=== PATIENT | female | born 1960 | race African-American/Black ===

== ENCOUNTER 2016-04-30 15:14 | Inpatient (IN) | payer MEDICAID, OTHER ==
[~2016-04-30] VITALS: Ht 167.6 cm; Wt 80.7 kg
[~2016-04-30 15:14] MED LIST: ALBUTEROL SULF8.5 GM INH; AZITHROMYCIN250 MG ORAL; AZITHROMYCIN500 MG ORAL; CIPROFLOXACIN500 M2 ORAL; CRANBERRY200 M1 PO; CRESTOR10 M1 PO; CYCLOBENZAPRINE10 MG ORAL; DEPAKOTE ER500 MG PO; ECONAZOLE NITRA15 GM; FISH OIL 1,0001 EAC1 ORAL; FLUOCINONIDE-E15 G1 TP; FLUOROMETHOLONE5 ML OP; IBUPROFEN200 MG ORAL; IBUPROFEN600 MG ORAL; LORAZEPAM1 MG ORAL; MACROBID100 MG ORAL; NORCO 5-325 TA1 EACH ORAL; PSEUDOEPHEDRINE30 MG PO; TRAMADOL HCL50 MG ORAL; TRAZODONE HCL100 MG PO; VALACYCLOVIR500 MG PO; ZOFRAN ODT4 MG ORAL
[2016-04-30] MEDS ORDERED: Nitroglycerin 2% oint pkt TOPIC ONE (15:30)
[2016-04-30] MEDS ORDERED: fentaNYL 100 mcg/2 mL IV ONE ×3 (15:30→20:00)
[2016-04-30] MEDS ORDERED: Albuterol ud Inhalation HHN ONE (15:30)
[2016-04-30 15:54] LABS: INR 1.1 (0.9-1.1); PROTHROMBIN TIME 10.7 SEC (9.30-11.50)
[2016-04-30 15:56] LABS: BASOPHILS % (AUTO) 1.6 % (0.0-2.0); EOSINOPHILS % (AUTO) 3.3 % (0.0-3.0); LYMPHOCYTES % (AUTO) 45.6 % (20.0-45.0); MEAN CORPUSCULAR HEMOGLOBIN 25.7 PG (27.0-31.0); MEAN CORPUSCULAR HGB CONC 31.3 G/DL (32.0-36.0); MEAN CORPUSCULAR VOLUME 82 FL (80-99); MEAN PLATELET VOLUME 6.9 FL (6.5-10.1); NEUTROPHILS % (AUTO) 42.6 % (45.0-75.0); PLATELET COUNT 246 K/UL (150-450); RED BLOOD COUNT 4.51 M/UL (4.20-5.40); RED CELL DISTRIBUTION WIDTH 14.5 % (11.6-14.8); WHITE BLOOD COUNT 6.5 K/UL (4.8-10.8)
[2016-04-30 16:00] LABS: ALANINE AMINOTRANSFERASE 24 U/L (3-33); ALBUMIN/GLOBULIN RATIO 1.8 (1.0-2.7); ANION GAP 16 (5-15); ASPARTATE AMINO TRANSFERASE 19 U/L (5-40); CALCIUM 9.2 mg/dL (8.6-10.2); CARBON DIOXIDE 26 mEQ/L (20-30); CHLORIDE 99 mEQ/L (98-107); GLOMERULAR FILTRATION RATE > 60 mL/min (>60); HEMOLYSIS 4; POTASSIUM 3.6 mEQ/L (3.4-4.9); SODIUM 141 mEQ/L (135-145); TROPONIN I < 0.30 ng/mL (<=0.30)
--- NOTE | 2016-04-30 16:01 | Emergency Room Report ---
History of Present Illness General Chief Complaint: Chest Pain Source: Patient, Medical Record Present Illness HPI Patient presents with chest pain that began last night. She reports it as pressure. It was intermittent last night but worse today. She denies any fevers or cough. Somewhat positional. She denies it radiating. She states is fairly severe at this time 9/10. Denies any nausea vomiting or diarrhea. In addition she denies diaphoresis. The patient is a prior smoker but denies hypertension and diabetes. The patient never had a cardiac workup operative she's never been admitted for chest pain however she's had several visits for this complaint in the past. She denies any vomiting, hematemesis, melena or change in her bowels. She denies dysuria. Also no extremity pain. Allergies: Coded Allergies: SHELLFISH DERIVED (Verified Allergy, Severe, Anaphylaxis, 04/30/12) MORPHINE (Verified Allergy, Intermediate, HEADAHCE, 08/06/13) Patient History Past Medical History: see triage record Social History: Reports: smoking - prior Social History Narrative At home Last Menstrual Period: 08/28/2009 Now: No : 6 Reviewed Nursing Documentation: PMH: Agreed, PSxH: Agreed Nursing Documentation-PMH Hx Diabetes: Yes - PRE-DIABETIC Hx Cancer: No Review of Systems All Other Systems: negative except mentioned in HPI Physical Exam Vital Signs Date Time Temp Pulse Resp B/P Pulse Ox O2 Delivery O2 Flow Rate FiO2 04/30/16 15:21 97.9 85 14 137/68 98 Room Air Sp02 EP Interpretation: reviewed, normal General Appearance: well appearing, no apparent distress, GCS 15 Head: normocephalic Eyes: bilateral eye PERRL, bilateral eye normal inspection ENT: moist mucus membranes Neck: supple Respiratory: chest non-tender, lungs clear, normal breath sounds Cardiovascular #1: regular rate, rhythm Cardiovascular #2: 2+ radial (R) Gastrointestinal: normal inspection, normal bowel sounds, non tender, no mass, non-distended Musculoskeletal: back normal, gait/station normal, normal range of motion Neurologic: alert, oriented x3, motor strength/tone normal, sensory intact Psychiatric: mood/affect normal Skin: normal inspection, warm/dry Medical Decision Making Diagnostic Impression: Primary Impression: Chest pain Additional Impression: Possible WPW ER Course The patient presents with chest pressure since last night. Differential includes costochondritis, acute myocardial infarction, acute coronary syndrome, GERD, gastritis, viral syndrome. She's requesting a breathing treatment. Her lungs are clear. Emergent evaluation is undertaken to exclude acute myocardial infarction. In addition the patient will be given aspirin Nitrol paste and also small dose of fentanyl to help with pain. Evaluation with labs, EKG chest x-ray are undertaken. EKG reveals normal sinus rhythm with a possibility of of Bulja-Eazvpydxj-Lwtio syndrome with a delta wave. There are no other acute changes. Patient still with pressure. Fentanyl repeated. Initial labs negative. Improved. C/O ALVAREZ with nitrates. Needs cardiac evaluation. Patient presented to Dr. Sullivan at [facility] who accepts the patient. Due to time delay for transfer, admit tele Dr. Zamora. Laboratory Tests Test 04/30/16 15:35 04/30/16 16:08 White Blood Count 6.5 K/UL (4.8-10.8) Red Blood Count 4.51 M/UL (4.20-5.40) Hemoglobin 11.6 G/DL (12.0-16.0) L Hematocrit 37.1 % (37.0-47.0) Mean Corpuscular Volume 82 FL (80-99) Mean Corpuscular Hemoglobin 25.7 PG (27.0-31.0) L Mean Corpuscular Hemoglobin Concent 31.3 G/DL (32.0-36.0) L Red Cell Distribution Width 14.5 % (11.6-14.8) Platelet Count 246 K/UL (150-450) Mean Platelet Volume 6.9 FL (6.5-10.1) Neutrophils (%) (Auto) 42.6 % (45.0-75.0) L Lymphocytes (%) (Auto) 45.6 % (20.0-45.0) H Monocytes (%) (Auto) 7.0 % (1.0-10.0) Eosinophils (%) (Auto) 3.3 % (0.0-3.0) H Basophils (%) (Auto) 1.6 % (0.0-2.0) Prothrombin Time 10.7 SEC (9.30-11.50) Prothrombin Time INR 1.1 (0.9-1.1) PTT 28 SEC (23-33) Sodium Level 141 mEQ/L (135-145) Potassium Level 3.6 mEQ/L (3.4-4.9) Chloride Level 99 mEQ/L (98-107) Carbon Dioxide Level 26 mEQ/L (20-30) Anion Gap 16 (5-15) H Blood Urea Nitrogen 13 mg/dL (7-23) Creatinine 1.0 mg/dL (0.5-0.9) H Estimate Glomerular Filtration Rate > 60 mL/min (>60) Glucose Level 99 mg/dL (74-106) Calcium Level 9.2 mg/dL (8.6-10.2) Total Bilirubin 0.2 mg/dL (0.0-1.2) Aspartate Amino Transferase (AST) 19 U/L (5-40) Alanine Aminotransferase (ALT) 24 U/L (3-33) Alkaline Phosphatase 89 U/L (35-104) Total Creatine Kinase 269 U/L (26-140) H Troponin I < 0.30 ng/mL (<=0.30) Pro-B-Type Natriuretic Peptide 48 pg/mL (0-125) Total Protein 7.0 g/dL (6.6-8.7) Albumin 4.5 g/dL (3.5-5.2) Globulin 2.5 g/dL Albumin/Globulin Ratio 1.8 (1.0-2.7) Urine Color Pale yellow Urine Appearance Clear Urine pH 6 (4.5-8.0) Urine Specific [place] 1.015 (1.005-1.035) Urine Protein Negative (NEGATIVE) Urine Glucose (UA) Negative (NEGATIVE) Urine Ketones Negative (NEGATIVE) Urine Occult Blood 2+ (NEGATIVE) H Urine Nitrite Negative (NEGATIVE) Urine Bilirubin Negative (NEGATIVE) Urine Urobilinogen Normal MG/DL (0.0-1.0) Urine Leukocyte Esterase 2+ (NEGATIVE) H Urine RBC 2-4 /HPF (0 - 2) H Urine WBC 0-2 /HPF (0 - 2) Urine Squamous Epithelial Cells Few /LPF (NONE/OCC) Urine Bacteria Few /HPF (NONE) Urine Opiates Screen Negative (NEGATIVE) Urine Barbiturates Screen Negative (NEGATIVE) Phencyclidine (PCP) Screen Negative (NEGATIVE) Urine Amphetamines Screen Negative (NEGATIVE) Urine Benzodiazepines Screen Negative (NEGATIVE) Urine Cocaine Screen Negative (NEGATIVE) Urine Marijuana (THC) Screen Negative (NEGATIVE) EKG Diagnostic Results Rate: normal Rhythm: NSR ST Segments: no acute changes Rhythm Strip Diag. Results Rhythm: NSR, no PVC's, no ectopy Chest X-Ray Diagnostic Results EP Interpretation: Yes Findings: no consolidation, no effusion, no pneumothorax, other - bone cyst R shoulder Number of Views: 1 Last Vital Signs Date Time Temp Pulse Resp B/P Pulse Ox O2 Delivery O2 Flow Rate FiO2 05/01/16 03:58 84 05/01/16 00:00 97.3 18 120/63 92 Room Air Status: improved Disposition: ADMITTED INPATIENT Condition: Serious - ERASED Calvin Fulton M.D. Apr 30, 2016 16:01
[2016-04-30 16:13] VITALS: BP 129/61
[2016-04-30 16:27] LABS: APPEARANCE,URINE CLEAR; KETONES,URINE NEGATIVE (NEGATIVE); LEUKOCYTE ESTERASE ,URINE 2+ (NEGATIVE); NITRITE,URINE NEGATIVE (NEGATIVE); PH,URINE 6 (4.5-8.0); PROTEIN,URINE NEGATIVE (NEGATIVE); UROBILINOGEN,URINE NORMAL MG/DL (0.0-1.0)
[2016-04-30 16:49] LABS: BACTERIA,URINE FEW /HPF; SQUAMOUS EPITHELIAL CELL,UR FEW /LPF (NONE/OCC); WBC,URINE 0-2 /HPF (0 - 2)
[2016-04-30 18:01] VITALS: BP 133/64
[2016-04-30 21:12] VITALS: BP 142/66
[2016-04-30] MEDS ORDERED: Diltiazem 25mg/5ml IV PRN (22:00)
[2016-04-30] MEDS ORDERED: DuoNeb 0.5-3(2.5)mg/3ml neb HHN PRN (22:00)
[2016-04-30] MEDS ORDERED: Miralax 17gm pkt ORAL PRN (22:00)
[2016-04-30] MEDS ORDERED: Ketorolac 30mg Inj IV PRN (22:00)
[2016-04-30] MEDS ORDERED: Nitroglycerin Subl 0.4mg tab (Bottle Of 25) SL PRN (22:00)
[2016-04-30] MEDS ORDERED: Enalaprilat 2.5mg/2ml Inj IV PRN (22:00)
[2016-05-01] VITALS: BP 120/63
[2016-05-01 07:24] LABS: BASOPHILS % (AUTO) 1.1 % (0.0-2.0); LYMPHOCYTES % (AUTO) 47.1 % (20.0-45.0); MEAN CORPUSCULAR HEMOGLOBIN 26.3 PG (27.0-31.0); MEAN CORPUSCULAR HGB CONC 32.1 G/DL (32.0-36.0); MEAN CORPUSCULAR VOLUME 82 FL (80-99); MEAN PLATELET VOLUME 7.2 FL (6.5-10.1); MONOCYTES % (AUTO) 7.6 % (1.0-10.0); NEUTROPHILS % (AUTO) 41.2 % (45.0-75.0); PLATELET COUNT 233 K/UL (150-450); RED BLOOD COUNT 4.35 M/UL (4.20-5.40); RED CELL DISTRIBUTION WIDTH 14.7 % (11.6-14.8); WHITE BLOOD COUNT 6.4 K/UL (4.8-10.8)
[2016-05-01 07:45] LABS: INR 1.1 (0.9-1.1); PROTHROMBIN TIME 10.7 SEC (9.30-11.50)
[2016-05-01 08:06] LABS: TROPONIN I < 0.30 ng/mL (<=0.30)
[2016-05-01 08:07] LABS: CHOLESTEROL/HDL RATIO 5.1 (3.3-4.4); CRP QUANT 0.9 mg/dL (< 0.5)
[2016-05-01 08:11] LABS: THYROID STIMULATING HORMONE 2.21 uIU/mL (0.300-4.500)
--- NOTE | 2016-05-01 08:23 | Cardiology Progress Note ---
Assessment/Plan Assessment/Plan cp gerd hs in ic aneurysm coiled at [facility] hyperlipidemia chest wall now tender trop ar eneg despite all day pain yest ekg neg agree ewith echo possible gii vs costochondiritis as a cause of pain vs esopahgeal pain [id number] Objective Last 24 Hour Vital Signs Date Time Temp Pulse Resp B/P Pulse Ox O2 Delivery O2 Flow Rate FiO2 05/01/16 03:58 84 05/01/16 00:00 97.3 73 18 120/63 92 Room Air 04/30/16 23:47 87 04/30/16 21:30 98.1 88 19 142/66 99 Room Air 04/30/16 21:12 98.1 88 19 142/66 99 Room Air 04/30/16 21:12 98.1 04/30/16 18:01 97.9 93 20 133/64 98 Room Air 04/30/16 17:03 97.9 04/30/16 16:14 75 19 Room Air 04/30/16 16:13 97.8 93 24 129/61 97 Room Air 04/30/16 16:07 97.8 04/30/16 15:51 75 19 100 Room Air 04/30/16 15:40 81 22 100 Room Air 04/30/16 15:39 81 22 Room Air 04/30/16 15:36 135/76 04/30/16 15:21 97.9 85 14 137/68 98 Room Air Laboratory Tests Test 04/30/16 15:35 04/30/16 16:08 05/01/16 06:30 White Blood Count 6.5 K/UL (4.8-10.8) 6.4 K/UL (4.8-10.8) Red Blood Count 4.51 M/UL (4.20-5.40) 4.35 M/UL (4.20-5.40) Hemoglobin 11.6 G/DL (12.0-16.0) L 11.4 G/DL (12.0-16.0) L Hematocrit 37.1 % (37.0-47.0) 35.6 % (37.0-47.0) L Mean Corpuscular Volume 82 FL (80-99) 82 FL (80-99) Mean Corpuscular Hemoglobin 25.7 PG (27.0-31.0) L 26.3 PG (27.0-31.0) L Mean Corpuscular Hemoglobin Concent 31.3 G/DL (32.0-36.0) L 32.1 G/DL (32.0-36.0) Red Cell Distribution Width 14.5 % (11.6-14.8) 14.7 % (11.6-14.8) Platelet Count 246 K/UL (150-450) 233 K/UL (150-450) Mean Platelet Volume 6.9 FL (6.5-10.1) 7.2 FL (6.5-10.1) Neutrophils (%) (Auto) 42.6 % (45.0-75.0) L 41.2 % (45.0-75.0) L Lymphocytes (%) (Auto) 45.6 % (20.0-45.0) H 47.1 % (20.0-45.0) H Monocytes (%) (Auto) 7.0 % (1.0-10.0) 7.6 % (1.0-10.0) Eosinophils (%) (Auto) 3.3 % (0.0-3.0) H 3.0 % (0.0-3.0) Basophils (%) (Auto) 1.6 % (0.0-2.0) 1.1 % (0.0-2.0) Prothrombin Time 10.7 SEC (9.30-11.50) 10.7 SEC (9.30-11.50) Prothromb Time International Ratio 1.1 (0.9-1.1) 1.1 (0.9-1.1) Activated Partial Thromboplast Time 28 SEC (23-33) 28 SEC (23-33) Sodium Level 141 mEQ/L (135-145) Potassium Level 3.6 mEQ/L (3.4-4.9) Chloride Level 99 mEQ/L (98-107) Carbon Dioxide Level 26 mEQ/L (20-30) Anion Gap 16 (5-15) H Blood Urea Nitrogen 13 mg/dL (7-23) Creatinine 1.0 mg/dL (0.5-0.9) H Estimat Glomerular Filtration Rate > 60 mL/min (>60) Glucose Level 99 mg/dL (74-106) Calcium Level 9.2 mg/dL (8.6-10.2) Total Bilirubin 0.2 mg/dL (0.0-1.2) Aspartate Amino Transf (AST/SGOT) 19 U/L (5-40) Alanine Aminotransferase (ALT/SGPT) 24 U/L (3-33) Alkaline Phosphatase 89 U/L (35-104) Total Creatine Kinase 269 U/L (26-140) H Troponin I < 0.30 ng/mL (<=0.30) < 0.30 ng/mL (<=0.30) Pro-B-Type Natriuretic Peptide 48 pg/mL (0-125) Total Protein 7.0 g/dL (6.6-8.7) Albumin 4.5 g/dL (3.5-5.2) Globulin 2.5 g/dL Albumin/Globulin Ratio 1.8 (1.0-2.7) Urine Color Pale yellow Urine Appearance Clear Urine pH 6 (4.5-8.0) Urine Specific [place] 1.015 (1.005-1.035) Urine Protein Negative (NEGATIVE) Urine Glucose (UA) Negative (NEGATIVE) Urine Ketones Negative (NEGATIVE) Urine Occult Blood 2+ (NEGATIVE) H Urine Nitrite Negative (NEGATIVE) Urine Bilirubin Negative (NEGATIVE) Urine Urobilinogen Normal MG/DL (0.0-1.0) Urine Leukocyte Esterase 2+ (NEGATIVE) H Urine RBC 2-4 /HPF (0 - 2) H Urine WBC 0-2 /HPF (0 - 2) Urine Squamous Epithelial Cells Few /LPF (NONE/OCC) Urine Bacteria Few /HPF (NONE) Urine Opiates Screen Negative (NEGATIVE) Urine Barbiturates Screen Negative (NEGATIVE) Phencyclidine (PCP) Screen Negative (NEGATIVE) Urine Amphetamines Screen Negative (NEGATIVE) Urine Benzodiazepines Screen Negative (NEGATIVE) Urine Cocaine Screen Negative (NEGATIVE) Urine Marijuana (THC) Screen Negative (NEGATIVE) C-Reactive Protein, Quantitative 0.9 mg/dL (< 0.5) H Triglycerides Level 196 mg/dL (< 150) H Cholesterol Level 177 mg/dL (< 200) LDL Cholesterol 103 mg/dL (60-99) H HDL Cholesterol 35 mg/dL (> 60) Cholesterol/HDL Ratio 5.1 (3.3-4.4) H Thyroid Stimulating Hormone (TSH) 2.210 uIU/mL (0.300-4.500) KAT ROSSb 24, 2017 08:23
--- NOTE | 2016-05-01 08:42 | Diagnostic Imaging Report ---
Indication: Chest pain Technique: One view of the chest Comparison: 07/02/2015 Findings: Lungs and pleural spaces are clear. Heart size is normal. No significant change Impression: No acute process
[2016-05-01] MEDS ORDERED: Depakote ER 500mg tab ORAL SCH (09:00)
[2016-05-01] MEDS ORDERED: Aspirin Baby 81mg ORAL SCH (09:00)
[2016-05-01] MEDS: Heparin 5000 units/ml inj SUBQ SCH ×2 (09:00→21:00)
[2016-05-01 12:00] VITALS: BP 118/65
--- NOTE | 2016-05-01 14:55 | History and Physical ---
History of Present Illness General Date patient seen: May 01, 2016 Reason for Hospitalization: Chest Pain Present Illness HPI 55 year old patient with hx Depression, brain aneurysm with coiling at [facility], presented to [place] [facility] with chest pain that began the night before admission . She reports it as pressure. It was intermittent last night but worse today. Somewhat positional. She denies it radiating. She states is fairly severe at this time. Allergies: Coded Allergies: SHELLFISH DERIVED (Verified Allergy, Severe, Anaphylaxis, 04/30/12) MORPHINE (Verified Allergy, Intermediate, HEADAHCE, 08/06/13) Medication History Scheduled Cranberry Extract (Cranberry), 3 TAB PO DAILY, (Reported) Divalproex Sodium* (Depakote Er*), 500 MG PO HS, (Reported) Fluorometholone (Fluorometholone), 5 ML OP PRN, (Reported) [place]-3 Fatty Acids/Fish Oil* (Fish Oil 1,000 Mg Softgel*), 2 CAP ORAL DAILY, ( Reported) Rosuvastatin Calcium (Crestor), 10 MG PO DAILY, (Reported) Trazodone Hcl* (Desyrel*), 150 MG PO QHS, (Reported) Valacyclovir Hcl* (Valtrex*), 1,000 MG PO BID, (Reported) Scheduled PRN Hydrocodone Bit/Acetaminophen 5-325* (Ev[place] 5-325*), 1 TAB ORAL Q6H PRN for For Pain Miscellaneous Medications Econazole Nitrate (Econazole Nitrate), 1 APPLIC, (Reported) Fluocinonide/Emollient (Fluocinonide-E 0.05% Cream), 15 GM TP, (Reported) Ibuprofen (Ibuprofen*), 800 MG ORAL, (Reported) Lorazepam* (Lorazepam*), 1 MG ORAL, (Reported) Patient History Healthcare decision maker pt alert and oriented Resuscitation status Full Code Advanced Directive on File Review of Systems All Other Systems: negative except mentioned in HPI Physical Exam General Appearance: WD/WN Lines, tubes and drains: peripheral, central line HEENT: normocephalic, atraumatic Neck: non-tender, normal alignment Respiratory/Chest: chest wall non-tender, lungs clear Cardiovascular/Chest: normal peripheral pulses, normal rate Abdomen: normal bowel sounds, non tender Last 24 Hour Vital Signs Date Time Temp Pulse Resp B/P Pulse Ox O2 Delivery O2 Flow Rate FiO2 05/01/16 12:00 97.3 82 18 118/65 98 Room Air 05/01/16 08:06 78 18 Room Air 05/01/16 07:51 79 05/01/16 03:58 84 05/01/16 00:00 97.3 73 18 120/63 92 Room Air 04/30/16 23:47 87 04/30/16 21:30 98.1 88 19 142/66 99 Room Air 04/30/16 21:12 98.1 88 19 142/66 99 Room Air 04/30/16 21:12 98.1 04/30/16 18:01 97.9 93 20 133/64 98 Room Air 04/30/16 17:03 97.9 04/30/16 16:14 75 19 Room Air 04/30/16 16:13 97.8 93 24 129/61 97 Room Air 04/30/16 16:07 97.8 04/30/16 15:51 75 19 100 Room Air 04/30/16 15:40 81 22 100 Room Air 04/30/16 15:39 81 22 Room Air 04/30/16 15:36 135/76 04/30/16 15:21 97.9 85 14 137/68 98 Room Air Laboratory Tests Test 04/30/16 15:35 04/30/16 16:08 05/01/16 06:30 White Blood Count 6.5 K/UL (4.8-10.8) 6.4 K/UL (4.8-10.8) Red Blood Count 4.51 M/UL (4.20-5.40) 4.35 M/UL (4.20-5.40) Hemoglobin 11.6 G/DL (12.0-16.0) L 11.4 G/DL (12.0-16.0) L Hematocrit 37.1 % (37.0-47.0) 35.6 % (37.0-47.0) L Mean Corpuscular Volume 82 FL (80-99) 82 FL (80-99) Mean Corpuscular Hemoglobin 25.7 PG (27.0-31.0) L 26.3 PG (27.0-31.0) L Mean Corpuscular Hemoglobin Concent 31.3 G/DL (32.0-36.0) L 32.1 G/DL (32.0-36.0) Red Cell Distribution Width 14.5 % (11.6-14.8) 14.7 % (11.6-14.8) Platelet Count 246 K/UL (150-450) 233 K/UL (150-450) Mean Platelet Volume 6.9 FL (6.5-10.1) 7.2 FL (6.5-10.1) Neutrophils (%) (Auto) 42.6 % (45.0-75.0) L 41.2 % (45.0-75.0) L Lymphocytes (%) (Auto) 45.6 % (20.0-45.0) H 47.1 % (20.0-45.0) H Monocytes (%) (Auto) 7.0 % (1.0-10.0) 7.6 % (1.0-10.0) Eosinophils (%) (Auto) 3.3 % (0.0-3.0) H 3.0 % (0.0-3.0) Basophils (%) (Auto) 1.6 % (0.0-2.0) 1.1 % (0.0-2.0) Prothrombin Time 10.7 SEC (9.30-11.50) 10.7 SEC (9.30-11.50) Prothromb Time International Ratio 1.1 (0.9-1.1) 1.1 (0.9-1.1) Activated Partial Thromboplast Time 28 SEC (23-33) 28 SEC (23-33) Sodium Level 141 mEQ/L (135-145) Potassium Level 3.6 mEQ/L (3.4-4.9) Chloride Level 99 mEQ/L (98-107) Carbon Dioxide Level 26 mEQ/L (20-30) Anion Gap 16 (5-15) H Blood Urea Nitrogen 13 mg/dL (7-23) Creatinine 1.0 mg/dL (0.5-0.9) H Estimat Glomerular Filtration Rate > 60 mL/min (>60) Glucose Level 99 mg/dL (74-106) Calcium Level 9.2 mg/dL (8.6-10.2) Total Bilirubin 0.2 mg/dL (0.0-1.2) Aspartate Amino Transf (AST/SGOT) 19 U/L (5-40) Alanine Aminotransferase (ALT/SGPT) 24 U/L (3-33) Alkaline Phosphatase 89 U/L (35-104) Total Creatine Kinase 269 U/L (26-140) H Troponin I < 0.30 ng/mL (<=0.30) < 0.30 ng/mL (<=0.30) Pro-B-Type Natriuretic Peptide 48 pg/mL (0-125) Total Protein 7.0 g/dL (6.6-8.7) Albumin 4.5 g/dL (3.5-5.2) Globulin 2.5 g/dL Albumin/Globulin Ratio 1.8 (1.0-2.7) Urine Color Pale yellow Urine Appearance Clear Urine pH 6 (4.5-8.0) Urine Specific [place] 1.015 (1.005-1.035) Urine Protein Negative (NEGATIVE) Urine Glucose (UA) Negative (NEGATIVE) Urine Ketones Negative (NEGATIVE) Urine Occult Blood 2+ (NEGATIVE) H Urine Nitrite Negative (NEGATIVE) Urine Bilirubin Negative (NEGATIVE) Urine Urobilinogen Normal MG/DL (0.0-1.0) Urine Leukocyte Esterase 2+ (NEGATIVE) H Urine RBC 2-4 /HPF (0 - 2) H Urine WBC 0-2 /HPF (0 - 2) Urine Squamous Epithelial Cells Few /LPF (NONE/OCC) Urine Bacteria Few /HPF (NONE) Urine Opiates Screen Negative (NEGATIVE) Urine Barbiturates Screen Negative (NEGATIVE) Phencyclidine (PCP) Screen Negative (NEGATIVE) Urine Amphetamines Screen Negative (NEGATIVE) Urine Benzodiazepines Screen Negative (NEGATIVE) Urine Cocaine Screen Negative (NEGATIVE) Urine Marijuana (THC) Screen Negative (NEGATIVE) C-Reactive Protein, Quantitative 0.9 mg/dL (< 0.5) H Triglycerides Level 196 mg/dL (< 150) H Cholesterol Level 177 mg/dL (< 200) LDL Cholesterol 103 mg/dL (60-99) H HDL Cholesterol 35 mg/dL (> 60) Cholesterol/HDL Ratio 5.1 (3.3-4.4) H Thyroid Stimulating Hormone (TSH) 2.210 uIU/mL (0.300-4.500) Height (Feet): 5 Height (Inches): 6.00 Weight (Pounds): 178 Medications Current Medications Medications (Trade) Dose Ordered Sig/Mayra Route PRN Reason Start Time Stop Time Status Last Admin Dose Admin Acetaminophen (Tylenol) 650 mg Q4H PRN ORAL FEVER 04/30/16 22:00 05/30/16 21:59 05/01/16 01:52 Albuterol/ Ipratropium (DuoNeb 0.5-3(2.5)mg/3ml) 3 ml Q4H PRN HHN Shortness of Breath 04/30/16 22:00 05/05/16 21:59 Aspirin (ASA) 162 mg DAILY ORAL 05/01/16 09:00 05/31/16 08:59 05/01/16 09:24 Diltiazem HCl (Cardizem) 10 mg EVERY HOUR PRN IV heart rate more than 120, 04/30/16 22:00 05/30/16 21:59 Divalproex Sodium (Depakote ER) 500 mg DAILY ORAL 05/01/16 09:00 05/31/16 08:59 05/01/16 09:24 Enalaprilat (Vasotec) 2.5 mg Q6H PRN IV sbp more than 160 04/30/16 22:00 05/30/16 21:59 Heparin Sodium (Porcine) (Heparin 5000 units/ml) 5,000 units EVERY 12 HOURS SUBQ 05/01/16 09:00 05/31/16 08:59 Ketorolac Tromethamine (Toradol 30mg) 30 mg Q6H PRN IV moderate pain ( 4-6) 04/30/16 22:00 05/05/16 21:59 Nitroglycerin (Ntg) 0.4 mg Every 5 Minutes PRN SL Prn Chest Pain 04/30/16 22:00 05/30/16 21:59 Ondansetron HCl (Zofran) 4 mg Q6H PRN IVP Nausea & Vomiting 04/30/16 22:00 05/30/16 21:59 Pantoprazole (Protonix) 40 mg DAILY ORAL 05/01/16 09:00 05/31/16 08:59 05/01/16 09:24 Polyethylene Glycol (Miralax) 17 gm DAILYPRN PRN ORAL Constipation 04/30/16 22:00 05/30/16 21:59 Temazepam (Restoril) 15 mg HSPRN PRN ORAL Insomnia 04/30/16 22:00 05/07/16 21:59 Trazodone HCl (Desyrel) 150 mg QHS ORAL 05/01/16 21:00 05/31/16 20:59 Assessment/Plan Problem List: (1) Chest pain ICD Codes: R07.9 - Chest pain, unspecified SNOMED: 96220193 (2) Costochondritis ICD Codes: M94.0 - Chondrocostal junction syndrome [Tietze] SNOMED: 24328352 (3) GERD (gastroesophageal reflux disease) ICD Codes: K21.9 - Gastro-esophageal reflux disease without esophagitis SNOMED: 070139612 Assessment/Plan cardio evaluation serial ekg, troponin GI evaluation. JASMYN MARTINES May 01, 2016 14:55
--- NOTE | 2016-05-01 15:58 | Consultation ---
DATE OF CONSULTATION: 05/01/2016 CARDIAC CONSULTATION CONSULTING PHYSICIAN: Micah Beach M.D. REFERRING PHYSICIAN: Lili Zamora M.D. REASON FOR REFERRAL: Chest pain. HISTORY OF PRESENT ILLNESS: This is a 55-year-old -[place] female, who has a history of hypercholesterolemia, who presented to the hospital because of pain in the center of the chest, heaviness, and pressure the way she described. This pain started day before her presentation to the emergency room, it initially was intermittent, subsequently became persistent, and she came to the emergency room. She really has not noticed any relieving or exacerbating factors, although she does notice that when she swallowed some water yesterday, it did not go down smoothly that she could feel something, but she really does not have pain and she does not have any food getting stuck in her chest. There is no PND or orthopnea. No dyspnea on exertion. No palpitations. No dizziness or lightheadedness. PAST MEDICAL HISTORY: Positive for history of an intracranial aneurysm that was coiled at [facility]. She has hypercholesterolemia, and she has Plasencia's neuroma. She had a history of tubal in the 80s. Denies any diabetes, high blood pressure, heart attack, cancer, stroke, hepatitis, tuberculosis, asthma, or emphysema. No ulcers. She does have a history of reflux. No kidney, liver, thyroid problems, anemia, arthritis, or blood clots. ALLERGIES: She is not allergic to any medication, although she indicated morphine to one of the staff. she told me penicillin, she does not like because of the smell and makes her nauseated. SOCIAL HISTORY: She quit smoking number of years ago. Does not drink alcoholic beverages. REVIEW OF SYSTEMS: Gastrointestinal: No nausea, vomiting, diarrhea, or constipation. Genitourinary: Negative. Pulmonary: Negative. Constitutional: Negative. Neurological: She has numbness and tingling, especially in two toes because of the neuroma. PHYSICAL EXAMINATION: GENERAL: An obese female, in no apparent respiratory distress. NECK: Supple. No jugular venous distention. No abdominojugular reflux noted. LUNGS: Clear to auscultation and percussion. CARDIAC: S1 is normal. S2 is normal. Regular rate and rhythm. No heaves, thrills, or gallops noted. Chest wall appears to be tender to palpation. EXTREMITIES: There is no clubbing, cyanosis, nor is there any edema. ABDOMEN: Soft and nontender. Positive bowel sounds. VITAL SIGNS: Her blood pressure today showed 120/63 to 142/66, respirations in the 70s, and temperature 97.3. LABORATORY AND DIAGNOSTIC DATA: White count of 6.4, hemoglobin 0.4 and platelet count of 233,000. Sodium is 141, potassium 3.6, chloride 99, bicarbonate 26, BUN 13, creatinine 1.0, and glucose of 99. Liver function tests are normal. Two sets of cardiac enzymes are less than 0.3, CPK of 269, pro-natriuretic peptide is only 48. Total cholesterol 177 with an LDL of 103 and HDL of 35. Her electrocardiogram shows normal sinus rhythm, normal QRS axis, really no ST or T-wave of abnormalities on the EKG. A chest x-ray was performed, unfortunately not available for review, but the emergency room physician's note indicates no consolidation, no effusion, no pneumothorax. A bone cyst apparently in the right shoulder was noted. ASSESSMENT: 1. Chest pain possibly include chest wall and/or esophageal, however, cardiac causes also low likelihood. 2. Obesity. 3. History of intracranial aneurysm, status post coiling. 4. Hyperlipidemia. RECOMMENDATION: Dr. Zamora, this patient was seen in cardiac consultation. The patient has had chest pain intermittently the day before admission and all day yesterday and only a soreness at this time. Her EKG at least one set is unremarkable. She has had two sets of cardiac enzymes that were many hours apart and those are negative indicating that this has not been associated with myocardial infarction. She does have some tenderness on palpation of the chest wall, which may indicate this pain is actually in her costochondral area. She did have some worsening of the pain to this degree when she drank some water, indicating the possibility of a GI origin as well. Cardiac evaluation is in progress, an echocardiogram has been ordered, and the patient apparently belongs to an HMO, may be transferred to a different facility for further evaluation. Micah Beach M.D. DR: SIVAKUMAR JOB#: [id number] CC:
[2016-05-01 16:00] VITALS: BP 138/97
--- NOTE | 2016-05-01 16:04 | GI Initial Consult Note ---
History of Present Illness General Date patient seen: May 01, 2016 Time patient seen: 15:56 Reason for Hospitalization: Chest Pain Referring physician: EDEN Reason for Consultation: EPIGASTRIC PAIN / GERD Present Illness HPI Patient presents with chest pain that began last night. She reports it as pressure. It was intermittent last night but worse today. She denies any fevers or cough. Somewhat positional. She denies it radiating. She states is fairly severe at this time. Denies any nausea vomiting or diarrhea. In addition she denies diaphoresis. The patient is a prior smoker but denies hypertension and diabetes. GI CONSULT: HPI as noted above. GI consulted for epigastric pain 2/2 GERD. Pt originally admitted for CP s/p negative cardiac work up c/o of sharp epigastric pain with tenderness since last night. States this is her first episode. Denies smoking, drug use. Social drinker. Pt states she had a EGD/ colonoscopy last year with hx of colonic polyps. She is unable to recall the results or location of the endoscopic clinic. Home Meds Active Scripts Hydrocodone Bit/Acetaminophen 5-325* (NORCO 5-325*) 1 Each Tablet, 1 TAB ORAL Q6H Y for For Pain, #20 TAB Prov:ENRIQUE CHAVEZ M.D. 11/01/15 Reported Medications Fluorometholone (FLUOROMETHOLONE) 5 Ml Drops.susp, 5 ML OP PRN 04/13/14 Econazole Nitrate (Econazole Nitrate) 15 Gm Cr, 1 APPLIC, #15 GM 0 Refills 04/13/14 Fluocinonide/Emollient (FLUOCINONIDE-E 0.05% CREAM) 15 Gm Cream..g., 15 GM TP, GM 04/13/14 Ibuprofen (IBUPROFEN*) 200 Mg Tablet, 800 MG ORAL, #30 TAB 0 Refills 04/13/14 Lorazepam* (LORAZEPAM*) 1 Mg Tablet, 1 MG ORAL, TAB 04/13/14 Cranberry Extract (CRANBERRY) 200 Mg Capsule, 3 TAB PO DAILY 12/20/12 Parker-3 Fatty Acids/Fish Oil* (FISH OIL 1,000 MG SOFTGEL*) 1 Each Capsule, 2 CAP ORAL DAILY, #30 CAP 0 Refills 12/20/12 Trazodone Hcl* (DESYREL*) 100 Mg Tablet, 150 MG PO QHS 04/29/12 Divalproex Sodium* (DEPAKOTE ER*) 500 Mg Tab.er.24h, 500 MG PO HS, #10 TAB 04/29/12 Rosuvastatin Calcium (Crestor) 10 Mg Tab, 10 MG PO DAILY 04/29/12 Valacyclovir Hcl* (VALTREX*) 500 Mg Tablet, 1000 MG PO BID 04/29/12 Med list reviewed/reconciled: Yes Allergies: Coded Allergies: SHELLFISH DERIVED (Verified Allergy, Severe, Anaphylaxis, 04/30/12) MORPHINE (Verified Allergy, Intermediate, HEADAHCE, 08/06/13) Patient History History Provided By: Patient, Medical Record [facility] Narrative Past Medical History: see triage record Social History: Reports: smoking - prior Social History Narrative At home Last Menstrual Period: 08/28/2009 Now: No : 6 Nursing Documentation-[facility] Hx Diabetes: Yes - PRE-DIABETIC Hx Cancer: No Social History: Reports: alcohol use - social Review of Systems All Other Systems: negative except mentioned in HPI Physical Exam Vital Signs Date Time Temp Pulse Resp B/P Pulse Ox O2 Delivery O2 Flow Rate FiO2 04/30/16 15:21 97.9 85 14 137/68 98 Room Air Sp02 EP Interpretation: reviewed Labs Laboratory Tests Test 04/30/16 16:08 05/01/16 06:30 Urine Color Pale yellow Urine Appearance Clear Urine pH 6 (4.5-8.0) Urine Specific [place] 1.015 (1.005-1.035) Urine Protein Negative (NEGATIVE) Urine Glucose (UA) Negative (NEGATIVE) Urine Ketones Negative (NEGATIVE) Urine Occult Blood 2+ (NEGATIVE) H Urine Nitrite Negative (NEGATIVE) Urine Bilirubin Negative (NEGATIVE) Urine Urobilinogen Normal MG/DL (0.0-1.0) Urine Leukocyte Esterase 2+ (NEGATIVE) H Urine RBC 2-4 /HPF (0 - 2) H Urine WBC 0-2 /HPF (0 - 2) Urine Squamous Epithelial Cells Few /LPF (NONE/OCC) Urine Bacteria Few /HPF (NONE) Urine Opiates Screen Negative (NEGATIVE) Urine Barbiturates Screen Negative (NEGATIVE) Phencyclidine (PCP) Screen Negative (NEGATIVE) Urine Amphetamines Screen Negative (NEGATIVE) Urine Benzodiazepines Screen Negative (NEGATIVE) Urine Cocaine Screen Negative (NEGATIVE) Urine Marijuana (THC) Screen Negative (NEGATIVE) White Blood Count 6.4 K/UL (4.8-10.8) Red Blood Count 4.35 M/UL (4.20-5.40) Hemoglobin 11.4 G/DL (12.0-16.0) L Hematocrit 35.6 % (37.0-47.0) L Mean Corpuscular Volume 82 FL (80-99) Mean Corpuscular Hemoglobin 26.3 PG (27.0-31.0) L Mean Corpuscular Hemoglobin Concent 32.1 G/DL (32.0-36.0) Red Cell Distribution Width 14.7 % (11.6-14.8) Platelet Count 233 K/UL (150-450) Mean Platelet Volume 7.2 FL (6.5-10.1) Neutrophils (%) (Auto) 41.2 % (45.0-75.0) L Lymphocytes (%) (Auto) 47.1 % (20.0-45.0) H Monocytes (%) (Auto) 7.6 % (1.0-10.0) Eosinophils (%) (Auto) 3.0 % (0.0-3.0) Basophils (%) (Auto) 1.1 % (0.0-2.0) Prothrombin Time 10.7 SEC (9.30-11.50) Prothromb Time International Ratio 1.1 (0.9-1.1) Activated Partial Thromboplast Time 28 SEC (23-33) Troponin I < 0.30 ng/mL (<=0.30) C-Reactive Protein, Quantitative 0.9 mg/dL (< 0.5) H Triglycerides Level 196 mg/dL (< 150) H Cholesterol Level 177 mg/dL (< 200) LDL Cholesterol 103 mg/dL (60-99) H HDL Cholesterol 35 mg/dL (> 60) Cholesterol/HDL Ratio 5.1 (3.3-4.4) H Thyroid Stimulating Hormone (TSH) 2.210 uIU/mL (0.300-4.500) General Appearance: well appearing, no apparent distress, alert Head: normocephalic Neck: thyroid normal Respiratory: normal breath sounds, no respiratory distress Cardiovascular: normal rate Gastrointestinal: normal bowel sounds, tenderness - epigastric Neurologic: normal inspection, alert, oriented x3, responsive Psychiatric: normal inspection, judgement/insight normal, memory normal Skin: normal inspection, normal color, no rash, warm/dry Lymphatic: normal inspection, no adenopathy Current Medications Current Medications Medications (Trade) Dose Ordered Sig/Mayra Route PRN Reason Start Time Stop Time Status Last Admin Dose Admin Acetaminophen (Tylenol) 650 mg Q4H PRN ORAL FEVER 04/30/16 22:00 05/30/16 21:59 05/01/16 01:52 Albuterol/ Ipratropium (DuoNeb 0.5-3(2.5)mg/3ml) 3 ml Q4H PRN HHN Shortness of Breath 04/30/16 22:00 05/05/16 21:59 Aspirin (ASA) 162 mg DAILY ORAL 05/01/16 09:00 05/31/16 08:59 05/01/16 09:24 Diltiazem HCl (Cardizem) 10 mg EVERY HOUR PRN IV heart rate more than 120, 04/30/16 22:00 05/30/16 21:59 Divalproex Sodium (Depakote ER) 500 mg DAILY ORAL 05/01/16 09:00 05/31/16 08:59 05/01/16 09:24 Enalaprilat (Vasotec) 2.5 mg Q6H PRN IV sbp more than 160 04/30/16 22:00 05/30/16 21:59 Heparin Sodium (Porcine) (Heparin 5000 units/ml) 5,000 units EVERY 12 HOURS SUBQ 05/01/16 09:00 05/31/16 08:59 Ketorolac Tromethamine (Toradol 30mg) 30 mg Q6H PRN IV moderate pain ( 4-6) 04/30/16 22:00 05/05/16 21:59 Nitroglycerin (Ntg) 0.4 mg Every 5 Minutes PRN SL Prn Chest Pain 04/30/16 22:00 05/30/16 21:59 Ondansetron HCl (Zofran) 4 mg Q6H PRN IVP Nausea & Vomiting 04/30/16 22:00 05/30/16 21:59 Pantoprazole (Protonix) 40 mg DAILY ORAL 05/01/16 09:00 05/31/16 08:59 05/01/16 09:24 Polyethylene Glycol (Miralax) 17 gm DAILYPRN PRN ORAL Constipation 04/30/16 22:00 05/30/16 21:59 Temazepam (Restoril) 15 mg HSPRN PRN ORAL Insomnia 04/30/16 22:00 05/07/16 21:59 Trazodone HCl (Desyrel) 150 mg QHS ORAL 05/01/16 21:00 05/31/16 20:59 GI: Plan Problems: (1) Abdominal pain (2) GERD (gastroesophageal reflux disease) Plan utox negative cardiac work up >> negative elevated triglyceride s/p EGD/colonoscopy 2015 symptomatic treatment at this time low fat diet, tolerating ppi + H2 pain mgmt GERD dietary education given elevate HOB slightly when sleeping fu labs Discussed with Dr. Balderrama. Thank you for referring this patient, we will follow. Indiana Chavez N.P. May 01, 2016 16:04
[2016-05-01 20:00] VITALS: BP 112/75
[2016-05-01] MEDS ORDERED: TraZODone 100mg tab ORAL SCH (21:00)
[2016-05-01 21:47] LABS: TROPONIN I < 0.30 ng/mL (<=0.30)
[2016-05-01] MEDS ORDERED: Nitroglycerin Subl 0.4mg tab (Bottle Of 25) SL PRN (22:30)
[2016-05-01 22:32] VITALS: BP 144/83
[2016-05-01] MEDS ORDERED: Enalaprilat 2.5mg/2ml Inj IV PRN (22:49)
[2016-05-01] MEDS ORDERED: DuoNeb 0.5-3(2.5)mg/3ml neb HHN PRN (22:50)
[2016-05-01] MEDS ORDERED: Miralax 17gm pkt ORAL PRN (22:54)
[2016-05-01] MEDS ORDERED: Diltiazem 25mg/5ml IV PRN (23:00)
[2016-05-02] VITALS: BP 130/78
[2016-05-02] MEDS: Ketorolac 30mg Inj IV PRN ×2 (00:44→08:11)
--- NOTE | 2016-05-02 03:02 | Cardiology Report ---
APPROVED REPORT EKG Measurement Heart [id number] Normal sinus rhythm Eyuub-Wxpuykliz-Bpusc Abnormal ECG
[2016-05-02 04:00] VITALS: BP 124/67
[2016-05-02 08:40] VITALS: BP 121/66
[2016-05-02] MEDS ORDERED: Depakote ER 500mg tab ORAL SCH (09:00)
[2016-05-02] MEDS ORDERED: Heparin 5000 units/ml inj SUBQ SCH (09:00)
[2016-05-02] MEDS ORDERED: Aspirin Baby 81mg ORAL SCH (09:00)
--- NOTE | 2016-05-02 11:47 | Cardiology Progress Note ---
Assessment/Plan Assessment/Plan cp costochondritis gerd hs in ic aneurysm coiled at [facility] hyperlipidemia chest wall tender reporducices pt pt pain has been persistently present and incertain posotion trop are neg despite all day pain yest ekg neg agree ewith echo costochondiritis as a cause of pain nsaids trial Subjective Cardiovascular: Reports: chest pain - in certain postion if straigher up in bed or turn to the right , Denies: lightheadedness Respiratory: Denies: shortness of breath Gastrointestinal/Abdominal: Denies: abdominal pain Genitourinary: Denies: burning Objective Last 24 Hour Vital Signs Date Time Temp Pulse Resp B/P Pulse Ox O2 Delivery O2 Flow Rate FiO2 05/02/16 08:41 97.7 05/02/16 08:40 97.7 74 19 121/66 97 Room Air 05/02/16 07:40 Nasal Cannula 2.0 05/02/16 07:39 79 16 Nasal Cannula 2.0 05/02/16 07:39 97 Nasal Cannula 2.0 05/02/16 04:00 97.7 70 18 124/67 94 Room Air 05/02/16 00:00 97.5 78 18 130/78 99 Room Air 05/01/16 22:32 97.7 67 18 144/83 94 Room Air 05/01/16 20:20 73 16 Room Air 05/01/16 20:00 97.7 78 18 112/75 95 Room Air 05/01/16 16:00 83 05/01/16 16:00 97.0 69 18 138/97 97 Room Air 05/01/16 12:00 97.3 82 18 118/65 98 Room Air General Appearance: no apparent distress, alert Neck: supple Cardiovascular: normal rate, regular rhythm, other - chest wall tendern to the leftof the sternum in geri costo chondral jopint Respiratory/Chest: lungs clear Abdomen: normal bowel sounds, non tender, soft Extremities: non-tender, no swelling Intake and Output 05/01/16 05/02/16 19:00 07:00 Intake Total 1320 ml 500 ml Balance 1320 ml 500 ml Intake Oral 1320 ml 500 ml # Voids 5 3 Laboratory Tests Test 05/01/16 21:33 Troponin I < 0.30 ng/mL (<=0.30) KAT ROSS May 02, 2016 11:47
[2016-05-02 12:13] VITALS: BP 138/69
[2016-05-02] MEDS ORDERED: Indomethacin 25mg cap ORAL SCH (13:00)
--- NOTE | 2016-05-02 14:24 | General Progress Note ---
Assessment/Plan Assessment/Plan GI: Plan Problems: (1) Abdominal pain (2) GERD (gastroesophageal reflux disease) Plan utox negative cardiac work up >> negative elevated triglyceride s/p EGD/colonoscopy 2015 symptomatic treatment at this time low fat diet, tolerating ppi + H2 pain mgmt GERD dietary education given elevate HOB slightly when sleeping fu labs Subjective Allergies: Coded Allergies: SHELLFISH DERIVED (Verified Allergy, Severe, Anaphylaxis, 04/30/12) MORPHINE (Verified Allergy, Intermediate, HEADAHCE, 08/06/13) Subjective Feels OK no abd c/o Objective Last 24 Hour Vital Signs Date Time Temp Pulse Resp B/P Pulse Ox O2 Delivery O2 Flow Rate FiO2 05/02/16 12:13 97.0 68 19 138/69 98 Room Air 05/02/16 08:41 97.7 05/02/16 08:40 97.7 74 19 121/66 97 Room Air 05/02/16 07:40 Nasal Cannula 2.0 05/02/16 07:39 79 16 Nasal Cannula 2.0 05/02/16 07:39 97 Nasal Cannula 2.0 05/02/16 04:00 97.7 70 18 124/67 94 Room Air 05/02/16 00:00 97.5 78 18 130/78 99 Room Air 05/01/16 22:32 97.7 67 18 144/83 94 Room Air 05/01/16 20:20 73 16 Room Air 05/01/16 20:00 97.7 78 18 112/75 95 Room Air 05/01/16 16:00 83 05/01/16 16:00 97.0 69 18 138/97 97 Room Air Intake and Output 05/01/16 05/02/16 19:00 07:00 Intake Total 1320 ml 500 ml Balance 1320 ml 500 ml Intake Oral 1320 ml 500 ml # Voids 5 3 Laboratory Tests 05/01/16 21:33: Troponin I < 0.30 Height (Feet): 5 Height (Inches): 6.00 Weight (Pounds): 178 Objective WDWN CTA RRR Soft no edema SAMMIE BONNER May 02, 2016 14:24
[2016-05-02] MEDS ORDERED: TraZODone 100mg tab ORAL SCH (21:00)
--- NOTE | 2016-05-04 13:00 | Discharge Summary ---
Discharge Summary Hospital Course Date of Admission Apr 30, 2016 at 19:20 Date of Discharge May 02, 2016 at 14:42 Admitting Diagnosis chest pain, possible ACS HPI 55 year old female with hx of brain aneurysm with coling at [facility] and depression , was admitted on Apr 30, 2016 at 19:20 for chest pain, rule out acute coronary syndrome Patient presented with chest pain since n last night, felt like pressure, intermittent, but worse the day of presentation Pain somewhat positional, not radiating, 9/10 . She denied any fevers or cough. Denied any nausea vomiting or diarrhea. Denied diaphoresis. The patient is a Prior smoker but denied hypertension and diabetes. Denied any vomiting, hematemesis, melena or change in her bowels. She denied dysuria, flank pain . No extremity pain. The patient never had a cardiac workup and never been admitted for chest pain before, however she had several visits for this complaint in the past. Troponin negative EKG revealed normal sinus rhythm with a possibility of of Ooslv-Lfproetku-Lodzh syndrome with a delta wave. There were no other acute changes.Treated for pain with Fentanyl ( allergic to Morphine) and nitrites Initial labs negative. c/o of ALVAREZ with nitrates. Initially planned to transfer to [facility] per insurance dr Sullivan accepted, but due to delay in transfer [place] [facility] [place] [facility] troponin all negative - despite all day pain yesterday ECG no ST changes - therefore ruled out for acute LA cardio seen and evaluated ECHO with EF 60-65% and RVSP of 15, mild LVH chest wall tender to palpation, i.e. chest pain reproducible on palpation pain had been persistently present in certain position costochondritis likely a cause of pain-per MD and cardio conclusion NSAIDs trial GI followed urine tox screen negative cardiac work up- negative elevated triglyceride s/p EGD/colonoscopy 2015 GI recommended symptomatic treatment at this time low fat diet, - able to tolerate on Fish oil and statin, encourage compliance PPI + H2 pain management GERD dietary education provided elevate HOB slightly when sleeping DISCHARGE DIAGNOSES chest pain r/y costochondritis costochondritis ACS was ruled out GERD hypertriglyceridemia abdominal pain GERD depression hx of brain aneurysm with coiling Discharge Condition Upon Discharge: stable Discharge Disposition Patient was discharged to Home (01) Discharge Diagnoses: Discharge Instructions Discharge Instructions Special Instructions I have been assigned to complete a D/C Summary on this account. I was not involved in the patient management [facility]Rama JACKSON May 04, 2016 12:59
--- NOTE | 2016-05-05 09:56 | Cardiology Report ---
APPROVED REPORT EXAM: Two-dimensional and M-mode echocardiogram with Doppler and color Doppler. INDICATION LV function M-Mode DIMENSIONS IVSd1.0 (0.7-1.1cm)Left Atrium (MM)4.2 (1.6-4.0cm) LVDd4.4 (3.5-5.6cm)Aortic Root3.4 (2.0-3.7cm) PWd1.2 (0.7-1.1cm)Aortic Cusp Exc.2.1 (1.5-2.0cm) IVSs1.3 cm LVDs2.8 (2.5-4.0cm) PWs1.5 cm Normal left ventricular chamber size, systolic function and wall motion. Left ventricular ejection fraction estimated to be 60-65 %. Mild left ventricular hypertrophy by 2-D. Anterior Echo-free space, may be due to pericardial fat or effusion. All other cardiac chamber sizes are within normal limits. Mild focal aortic valve sclerosis with adequate cusp excursion. Mildly thickened mitral valve leaflets with normal excursion. Mild mitral annulus and aortic root calcification. Pulmonic valve not well visualized. Normal tricuspid valve structure. IVC at normal size with physiologic collapse. A color flow and spectral Doppler study was performed and revealed: Trace mitral regurgitation. Mitral diastolic velocities suggest reduced left ventricular relaxation c/w mild LV diastolic dysfunction (Grade I). Trace tricuspid regurgitation. Tricuspid systolic velocities suggests peak right ventricular systolic pressure of 15 mmHg.
== END 2016-05-02 14:42 | disposition home or self-care (01) | DRG 203 ==
LOC: ENRESERVTM → ENRESERVDT → EMR 16:05 → EDBEDREQ 17:06 → 2E 19:20 → EDBEDREQ 20:52 → 3E 05-01 22:20
DX: M94.0 Chondrocostal junction syndrome [Tietze] (principal); F32.9 Major depressive disorder, single episode, unspecified; K21.9 Gastro-esophageal reflux disease without esophagitis; R10.9 Unspecified abdominal pain; Z88.6 Allergy status to analgesic agent; E78.1 Pure hyperglyceridemia; G57.60 Lesion of plantar nerve, unspecified lower limb; Z87.891 Personal history of nicotine dependence
CPT/HCPCS: 36415; 71010; 80053; 80061; 80300; 81003; 82550; 83880; 84443; 84484; 85025; 85610; 85730; 86140; 93005; 93306; 94640; 94664; 94760

== ENCOUNTER 2017-10-02 06:57 | Emergency (ER) | payer MEDICAID ==
[~2017-10-02] VITALS: Ht 167.6 cm; Wt 67.6 kg
[2017-10-02 07:23] VITALS: BP 134/70
[2017-10-02] MEDS ORDERED: Albuterol ud Inhalation HHN ONE ×2 (07:30→08:15)
[2017-10-02] MEDS ORDERED: Ipratropium 0.02% Inh Soln 2.5ml UD HHN ONE ×2 (07:30→08:15)
--- NOTE | 2017-10-02 07:47 | Emergency Room Report ---
History of Present Illness General Chief Complaint: General Complaint Source: Patient Present Illness HPI 57-year-old female presents to ED complaining of cough and chest tightness 4 days. States that cough is dry. States she is wheezing. Denies history of asthma but states that she has required inhaler at times. States she was exposed to some Clorox bleach when cleaning a few days ago and inhaled some of the fumes. Denies fevers or chills. Denies chest pain. No other aggravating relieving factors. Denies any other associated symptoms Allergies: Coded Allergies: SHELLFISH DERIVED (Verified Allergy, Severe, Anaphylaxis, 04/30/12) MORPHINE (Verified Allergy, Intermediate, HEADAHCE, 08/06/13) Patient History Past Medical History: DM Past Surgical History: none Pertinent Family History: none Social History: Denies: smoking, alcohol use, drug use Now: No Immunizations: UTD Reviewed Nursing Documentation: PMH: Agreed; PSxH: Agreed Nursing Documentation-PMH Past Medical History: No History, Except For Hx Cardiac Problems: No - Herpes Hx Hypertension: No Hx Pacemaker: No Hx Asthma: No Hx COPD: No Hx Diabetes: Yes - PRE-DIABETIC Hx Cancer: No Hx Gastrointestinal Problems: No Hx Dialysis: No History Of Psychiatric Problem: No Hx Neurological Problems: No Hx Cerebrovascular Accident: No Hx Seizures: No Review of Systems All Other Systems: negative except mentioned in HPI Physical Exam Vital Signs Date Time Temp Pulse Resp B/P (MAP) Pulse Ox O2 Delivery O2 Flow Rate FiO2 10/02/17 07:08 98.0 64 16 128/66 98 98.1 10/02/17 07:37 Room Air 21 Sp02 EP Interpretation: reviewed, normal General Appearance: no apparent distress, alert, GCS 15, non-toxic Head: normocephalic, atraumatic Eyes: bilateral eye normal inspection, bilateral eye PERRL ENT: hearing grossly normal, normal pharynx, no angioedema, normal voice Neck: full range of motion, supple/symm/no masses Respiratory: chest non-tender, normal breath sounds, speaking full sentences, wheezing Cardiovascular #1: regular rate, rhythm, no edema Cardiovascular #2: 2+ carotid (R), 2+ carotid (L), 2+ radial (R), 2+ radial (L) , 2+ dorsalis pedis (R), 2+ dorsalis pedis (L) Gastrointestinal: normal bowel sounds, non tender, soft, non-distended, no guarding, no rebound Rectal: deferred Genitourinary: normal inspection, no CVA tenderness Musculoskeletal: back normal, gait/station normal, normal range of motion, non- tender Neurologic: alert, oriented x3, responsive, motor strength/tone normal, sensory intact, speech normal Psychiatric: judgement/insight normal, memory normal, mood/affect normal, no suicidal/homicidal ideation Reflexes: 3+ bicep (R), 3+ bicep (L), 3+ tricep (R), 3+ tricep (L), 3+ knee (R) , 3+ knee (L) Skin: normal color, no rash, warm/dry, well hydrated Lymphatic: no adenopathy Medical Decision Making Diagnostic Impression: Primary Impression: Bronchitis ER Course Hospital Course 57-year-old female presents to ED complaining of wheezing Differential diagnoses include: URI, bronchitis, asthma/COPD, pneumonia Clinical course Patient placed on stretcher. After initial history and physical I ordered prednisone and nebulizer treatment. Upon reassessment patient states cough and symptoms have improved. Findings consistent with bronchitis. Diagnosis - bronchitis Stable and discharged home with prescriptions for Rx prednisone, albuterol. Instructed to followup with PMD. Return to ED if symptoms recur or worsen Last Vital Signs Date Time Temp Pulse Resp B/P (MAP) Pulse Ox O2 Delivery O2 Flow Rate FiO2 10/02/17 07:37 60 14 98 Room Air 21 10/02/17 07:23 98.1 134/70 98.1 Status: improved Disposition: HOME, SELF-CARE Condition: Stable Scripts Prednisone* (PREDNISONE*) 20 Mg Tablet 40 MG ORAL DAILY, #10 TAB Prov: Souleymane Do MD 10/02/17 Albuterol Sulfate* (ALBUTEROL SULFATE MDI*) 8.5 Gm Hfa.aer.ad 2 PUFF INH Q6H, #1 EA 0 Refills Prov: Souleymane Do MD 10/02/17 Souleymane Do MD Oct 02, 2017 07:47
[2017-10-02 08:53] VITALS: BP 148/81
[2017-10-02] MEDS ORDERED: PREDNISONE20 MG ORAL (08:57)
[2017-10-02] MEDS ORDERED: ALBUTEROL SULF8.5 GM INH (08:57)
[2017-10-02 09:03] VITALS: BP 148/81
== END 2017-10-02 09:04 | disposition home or self-care (01) ==
LOC: EMR 07:54
DX: J40 Bronchitis, not specified as acute or chronic (principal); E11.9 Type 2 diabetes mellitus without complications; Z91.013 Allergy to seafood; Z88.5 Allergy status to narcotic agent
CPT/HCPCS: 94640; 94664; 99284; J7512

== ENCOUNTER 2019-05-02 08:17 | Emergency (ER) | payer MEDICAID ==
[~2019-05-02] VITALS: Ht 167.6 cm; Wt 67.6 kg
[~2019-05-02 08:17] MED LIST changes: +PREDNISONE20 MG ORAL
--- NOTE | 2019-05-02 08:42 | Emergency Room Report ---
History of Present Illness General Chief Complaint: Upper Extremity Injury Source: Patient Present Illness HPI Disclaimer: Please note that this report is being documented using DRAGON technology. This can lead to erroneous entry secondary to incorrect interpretation by the dictating instrument. HPI: 58-year-old [id number] female presents for evaluation of left hand pain after an injury. She slipped in her kitchen 3 days ago landing on outstretched left hand. Noted pain and swelling around the base of the thumb and around the wrist. Difficulty with flexion but able to extend. Swelling is improved the pain continues. She is using tramadol at home. Denies numbness or tingling. Denies skin breakdown. No prior history of injury to the hand. Allergies: Coded Allergies: SHELLFISH DERIVED (Verified Allergy, Severe, Anaphylaxis, 04/30/12) MORPHINE (Verified Allergy, Intermediate, HEADAHCE, 08/06/13) Nursing Documentation-[facility] Past Medical History: No History, Except For Hx Cardiac Problems: No - Herpes Hx Hypertension: No Hx Pacemaker: No Hx Asthma: No Hx COPD: No Hx Diabetes: Yes - PRE-DIABETIC Hx Cancer: No Hx Gastrointestinal Problems: No Hx Dialysis: No Hx Neurological Problems: No Hx Cerebrovascular Accident: No Hx Seizures: No Review of Systems All Other Systems: negative except mentioned in HPI Physical Exam Vital Signs Date Time Temp Pulse Resp B/P (MAP) Pulse Ox O2 Delivery O2 Flow Rate FiO2 05/02/19 08:25 97.3 73 18 131/70 (90) 99 Room Air General: Awake and alert, no acute distress HEENT: NC/AT. EOMI. Resp: Normal work of breathing Skin: Intact. No abrasions, laceration or rash over the exposed skin MSK: Normal tone and bulk. Moving all extremities. No obvious deformity. There is tenderness palpation at the base of the first metacarpal and over the anatomic snuffbox. Patient able to flex and extend the digits of the left hand though with moderate tenderness. Sensation intact over the radial ulnar aspect of all digits. Capillary refill is brisk and less than 2 seconds. 2+ palpable radial pulse. No skin breakdown. Remainder of hand is atraumatic and nontender. Able to flex and extend at the wrist. No injury or tenderness deformity to the elbow or shoulder. Neuro: Awake and alert. Mentating appropriately Medical Decision Making ER Course 58-year-old female presents for evaluation of left hand and wrist pain after a fall 3 days ago. Concern for fracture dislocation and particularly with pain around the anatomic snuffbox. An x-ray was ordered that does not find acute fracture or dislocation. Given the patient's pain over the anatomic snuffbox she was placed in a thumb spica. Will have repeat imaging in 1 week if symptoms continue. Discussed reasons to return to the emergency department as well as need for follow-up. Patient was discharged home. Other X-Ray Diagnostic Results Other X-Ray Diagnostic Results #1: X-Ray ordered: Left hand # of Views/Limited Vs Complete: Complete Indication: Pain EP Interpretation: Yes Interpretation: no dislocation, no soft tissue swelling, no fractures Impression: No acute disease Electronically Signed by: Electronically signed by Dr. Terry Thomas Other X-Ray Diagnostic Results #2: X-Ray ordered: Left wrist # of Views/Limited Vs Complete: Complete Indication: Pain EP Interpretation: Yes Interpretation: no dislocation, no soft tissue swelling, no fractures Impression: No acute disease Electronically Signed by: Electronically signed by Dr. Terry Thomas Last Vital Signs Date Time Temp Pulse Resp B/P (MAP) Pulse Ox O2 Delivery O2 Flow Rate FiO2 05/02/19 08:25 97.3 73 18 131/70 (90) 99 Room Air Disposition: HOME, SELF-CARE Condition: Stable Terry Thomas MD May 02, 2019 08:42
[2019-05-02 08:50] VITALS: BP 131/70
--- NOTE | 2019-05-02 08:52 | NUR ---
ED Nurse Note:pt. fell 3 days ago and c/o left hand pain
[2019-05-02] MEDS ORDERED: PROMETHAZINE-C118 M1 ORAL (08:57)
[2019-05-02] MEDS ORDERED: HYDROcodone/Acetamin 7.5/325 tab ORAL ONE (09:45)
--- NOTE | 2019-05-02 11:10 | Diagnostic Imaging Report ---
Indication: left hand pain. Comparison: None Findings: 3 views of the left hand were obtained. Normal alignment is demonstrated. No acute fractures, erosions, or periosteal reaction are seen. Soft tissues are unremarkable. Impression: No acute findings.
--- NOTE | 2019-05-02 11:10 | Diagnostic Imaging Report ---
Indication: Left wrist pain Findings: 3 views of the left wrist were obtained. No acute fractures, malalignment, erosions or periostitis are identified. Soft tissues are unremarkable. Impression: No acute findings.
[2019-05-02 11:20] VITALS: BP 131/70
--- NOTE | 2019-05-02 11:20 | NUR ---
ER DISCHARGE NOTE: Patient is cleared to be discharged per ERMD, pt is aox4, on room air, with stable vital signs. pt was given dc and prescription instructions, pt was able to verbalize understanding, pt is able to ambulate with steady gait. pt took all belongings.
== END 2019-05-02 11:20 | disposition home or self-care (01) ==
LOC: EMR 09:02
DX: S69.92XA Unspecified injury of left wrist, hand and finger(s), initial encounter (principal); R73.03 Prediabetes; W01.0XXA Fall on same level from slipping, tripping and stumbling without subsequent striking against object, initial encounter; Y92.000 Kitchen of unspecified non-institutional (private) residence as the place of occurrence of the external cause
CPT/HCPCS: 29125; 73110; 73130; Z7502; 99284

== ENCOUNTER 2019-11-02 13:23 | Emergency (ER) | payer MEDICAID ==
[~2019-11-02] VITALS: Ht 170.2 cm; Wt 66.7 kg
[~2019-11-02 13:23] MED LIST changes: +PROMETHAZINE-C118 M1 ORAL
--- NOTE | 2019-11-02 13:41 | NUR ---
ED Nurse Note: Patient walked into ED c/o right foot pain (9/10) and swelling x 2 days. Patient kicked ottoman at home while walking and pain/swelling has gotten worse. Patient AxO x 4.
--- NOTE | 2019-11-02 13:59 | NUR ---
ED Nurse Note: ERPA at bedside
[2019-11-02] MEDS ORDERED: Tylenol #3 tab (300mg/30mg) ORAL ONE (14:15)
--- NOTE | 2019-11-02 14:15 | NUR ---
ER DISCHARGE NOTE: Patient is cleared to be discharged per ERPA, pt is aox4, on room air, with stable vital signs. pt was given dc and prescription instructions, pt was able to verbalize understanding, pt id band removed. Splint applied to affected foot by fibrous plasterer, pulses 2+ in toes, good circulation. pt is able to ambulate with steady gait. pt took all belongings.
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
--- NOTE | 2019-11-02 14:27 | NUR ---
ED Nurse Note: Xray at bedside
--- NOTE | 2019-11-02 16:05 | Diagnostic Imaging Report ---
Indication: Right foot pain Technique: 3 views right foot Comparison: none Findings: No acute fractures. No dislocations. Unusual gracile appearance to the fifth distal phalanx, probably developmental or could indicate old erosive changes. The joint spaces are preserved. Impression: No acute bony trauma
[2019-11-02] MEDS ORDERED: IBUPROFEN600 M1 ORAL (16:06)
[2019-11-02 16:15] VITALS: BP 157/79
== END 2019-11-02 16:15 | disposition home or self-care (01) ==
LOC: EMR 13:45
DX: S90.31XA Contusion of right foot, initial encounter (principal); W22.09XA Striking against other stationary object, initial encounter; Y93.01 Activity, walking, marching and hiking; Y92.019 Unspecified place in single-family (private) house as the place of occurrence of the external cause; Z88.5 Allergy status to narcotic agent; Z91.013 Allergy to seafood
CPT/HCPCS: 73630; Z7502; 99283

== ENCOUNTER 2020-03-09 06:18 | Emergency (ER) | payer MEDICAID ==
[~2020-03-09] VITALS: Ht 170.2 cm; Wt 68.0 kg
[~2020-03-09 06:18] MED LIST changes: +IBUPROFEN600 M1 ORAL
--- NOTE | 2020-03-09 06:25 | NUR ---
ED Nurse Note: pt walked into ED from home c/o 09/14 chest pain that radiates to back for 2 days now. Pt does state she has hx of acid reflux and symptoms feel similar. Pt is AAOx4, breathing even and unlabored. Vital signs stable.
--- NOTE | 2020-03-09 06:40 | NUR ---
ED Nurse Note: blood collected and sent to lab
[2020-03-09] MEDS ORDERED: Mylanta II UD 30ml ORAL ONE (06:45)
[2020-03-09] MEDS ORDERED: Lidocaine 2% Visc 15ml soln ORAL ONE (06:45)
--- NOTE | 2020-03-09 06:48 | Emergency Room Report ---
History of Present Illness General Chief Complaint: Chest Pain Present Illness HPI Disclaimer: Please note that this report is being documented using [employer] technology. This can lead to erroneous entry secondary to incorrect interpretation by the dictating instrument. HPI: 59-year-old female history of high cholesterol presented from home complaining of chest pain. She states that substernal nonradiating. Pressure- like. Also feeling anxious and has a history of acid reflux. She states it has been constant for 2 days. No nausea or vomiting. No cough or fever. No sick contacts and recent travel. She denies any cardiac history. She also complains of chronic left thumb pain that has been present for a couple of months. Worse with movement. No acute injury. PMH: High cholesterol PSH: Reviewed Social Hx: Denies smoking drinking or illicit drug use Allergies: Coded Allergies: SHELLFISH DERIVED (Verified Allergy, Severe, Anaphylaxis, 04/30/12) MORPHINE (Verified Allergy, Intermediate, HEADAHCE, 08/06/13) PENICILLINS (Verified Allergy, Unknown, 03/09/20) COVID-19 Screening Contact w/high risk pt: No Experienced COVID-19 symptoms?: No COVID-19 Testing performed OPERATIONS DISPATCHER: No COVID-19 Screening: Negative COVID-19 COVID-19 Testing Source: [facility] [place] Patient History Now: No Reviewed Nursing Documentation: PMH: Agreed; PSxH: Agreed Nursing Documentation-PMH Hx Cardiac Problems: No - Herpes Hx Hypertension: No Hx Pacemaker: No Hx Asthma: No Hx COPD: No Hx Diabetes: Yes - PRE-DIABETIC Hx Cancer: No Hx Gastrointestinal Problems: No - GERD Hx Dialysis: No Hx Neurological Problems: No Hx Cerebrovascular Accident: No Hx Seizures: No Review of Systems All Other Systems: negative except mentioned in HPI Physical Exam Vital Signs Date Time Temp Pulse Resp B/P (MAP) Pulse Ox O2 Delivery O2 Flow Rate FiO2 03/09/20 06:21 98.2 92 20 98/69 (79) 98 Room Air Sp02 EP Interpretation: reviewed, normal General Appearance: well appearing, no apparent distress Head: normocephalic, atraumatic Eyes: bilateral eye PERRL, bilateral eye EOMI ENT: hearing grossly normal, moist mucus membranes Neck: full range of motion, supple Respiratory: lungs clear, normal breath sounds, no rhonchi, no respiratory distress, no retraction, no wheezing Cardiovascular #1: normal peripheral pulses, regular rate, rhythm, no murmur Gastrointestinal: non tender, soft, non-distended, no guarding Musculoskeletal: other - Left thumb mildly tender to palpation along MCP with full range of motion no deformity sensation intact. Neurologic: alert, oriented x3, no focal defects Skin: normal color, warm/dry Medical Decision Making Diagnostic Impression: Primary Impression: Atypical chest pain Additional Impression: Left thumb sprain ER Course MDM: Differential included but not limited to anxiety, angina, GERD, musculoskeletal pain to name a few in addition to tendinitis, arthritis, sprain Clinical course-laboratory studies ordered. Chest x-ray ordered and showed no acute process. Laboratory studies did not demonstrate any troponin elevation or other significant abnormalities. EKG had no ischemic changes. Patient's chest pain was atypical in nature. In the ER she was given a GI cocktail in addition to a breathing treatment. I have low suspicion for cardiac etiology at this time. She was no acute distress stable vital signs. Will discharge with antacids and follow-up with PMD. Regarding her left thumb this is been a chronic pain. Low suspicion for fracture. I did place her in a thumb spica splint for comfort. She was neurovascularly intact. She will follow up with orthopedics. Patient stable for discharge with return precautions. Labs - Laboratory Tests Test 03/09/20 06:44 White Blood Count 6.6 K/UL (4.8-10.8) Red Blood Count 4.27 M/UL (4.20-5.40) Hemoglobin 12.6 G/DL (12.0-16.0) Hematocrit 37.9 % (37.0-47.0) Mean Corpuscular Volume 89 FL (80-99) Mean Corpuscular Hemoglobin 29.5 PG (27.0-31.0) Mean Corpuscular Hemoglobin Concent 33.2 G/DL (32.0-36.0) Red Cell Distribution Width 14.8 % (11.6-14.8) Platelet Count 218 K/UL (150-450) Mean Platelet Volume 7.3 FL (6.5-10.1) Neutrophils (%) (Auto) 55.5 % (45.0-75.0) Lymphocytes (%) (Auto) 36.6 % (20.0-45.0) Monocytes (%) (Auto) 4.5 % (1.0-10.0) Eosinophils (%) (Auto) 1.6 % (0.0-3.0) Basophils (%) (Auto) 1.7 % (0.0-2.0) Sodium Level 140 MMOL/L (136-145) Potassium Level 3.9 MMOL/L (3.5-5.1) Chloride Level 105 MMOL/L (98-107) Carbon Dioxide Level 29 MMOL/L (21-32) Anion Gap 6 mmol/L (5-15) Blood Urea Nitrogen 16 mg/dL (7-18) Creatinine 1.0 MG/DL (0.55-1.30) Estimated Glomerular Filtration Rate > 60 mL/min (>60) Glucose Level 111 MG/DL (74-106) H Calcium Level 9.0 MG/DL (8.5-10.1) Total Bilirubin 0.3 MG/DL (0.2-1.0) Aspartate Amino Transferase (AST) 21 U/L (15-37) Alanine Aminotransferase (ALT) 23 U/L (12-78) Alkaline Phosphatase 67 U/L (46-116) Troponin I 0.002 ng/mL (0.000-0.056) Total Protein 7.4 G/DL (6.4-8.2) Albumin 3.9 G/DL (3.4-5.0) Globulin 3.5 g/dL Albumin/Globulin Ratio 1.1 (1.0-2.7) On reevaluation: Patient improved Plan-discharge home with follow-up with PMD EKG Diagnostic Results Rate: normal Rhythm: NSR ST Segments: no acute changes Other Impression LVH Chest X-Ray Diagnostic Results Chest X-Ray Diagnostic Results : Chest X-Ray Ordered: Yes # of Views/Limited/Complete: 1 View Indication: Chest Pain EP Interpretation: Yes Interpretation: no consolidation, no effusion, no acute cardiopulmonary disease Impression: No acute disease Electronically Signed by: Tristan Magana MD Last Vital Signs Date Time Temp Pulse Resp B/P (MAP) Pulse Ox O2 Delivery O2 Flow Rate FiO2 03/09/20 06:21 98.2 92 20 98/69 (79) 98 Room Air Status: improved Disposition: HOME, SELF-CARE Condition: Improved Scripts Famotidine* (Pepcid 20mg tablet*) 20 Mg Tablet 20 MG ORAL TWICE A DAY for Gerd, #60 TAB 0 Refills Prov: Tristan Magana M.D. 03/09/20 Tristan Magana M.D. Mar 09, 2020 06:48
[2020-03-09 06:55] VITALS: BP 153/65
--- NOTE | 2020-03-09 06:57 | NUR ---
ED Nurse Note: furniture repair technician at bedside
[2020-03-09 06:59] LABS: BASOPHILS % (AUTO) 1.7 % (0.0-2.0); EOSINOPHILS % (AUTO) 1.6 % (0.0-3.0); HEMATOCRIT 37.9 % (37.0-47.0); HEMOGLOBIN 12.6 G/DL (12.0-16.0); LYMPHOCYTES % (AUTO) 36.6 % (20.0-45.0); MEAN CORPUSCULAR VOLUME 89 FL (80-99); MONOCYTES % (AUTO) 4.5 % (1.0-10.0); NEUTROPHILS % (AUTO) 55.5 % (45.0-75.0); PLATELET COUNT 218 K/UL (150-450); RED BLOOD COUNT 4.27 M/UL (4.20-5.40); RED CELL DISTRIBUTION WIDTH 14.8 % (11.6-14.8); WHITE BLOOD COUNT 6.6 K/UL (4.8-10.8)
--- NOTE | 2020-03-09 07:00 | NUR ---
HAND-OFF: Report given to JUAN DIEGO Ramos.
--- NOTE | 2020-03-09 07:01 | NUR ---
ED Nurse Note: Recieved report from JUAN DIEGO Reyes. Patient AAO x4, was able to ambulate to the bathroom with steady gait, all VSS at this time.
--- NOTE | 2020-03-09 07:15 | Diagnostic Imaging Report ---
EXAM: XR Chest, 1 View CLINICAL HISTORY: PAIN TECHNIQUE: Frontal view of the chest. COMPARISON: Chest radiograph December 02, 2019 and April 30, 2016. FINDINGS: Lungs: Unremarkable. No consolidation. Pleural space: Unremarkable. No pneumothorax. Heart: Unremarkable. No cardiomegaly. Mediastinum: Unremarkable. Bones/joints: Sclerotic density within the proximal humerus measuring 1.2 cm, similar in appearance to April 30, 2016. This may represent a bone island. IMPRESSION: No focal infiltrate. Sclerotic density within the proximal humerus measuring 1.2 cm, similar in appearance to April 30, 2016. This may represent a bone island.
[2020-03-09 07:23] LABS: ANION GAP 6 mmol/L (5-15); BLOOD UREA NITROGEN 16 mg/dL (7-18); CARBON DIOXIDE 29 MMOL/L (21-32); CHLORIDE 105 MMOL/L (98-107); POTASSIUM 3.9 MMOL/L (3.5-5.1); SODIUM 140 MMOL/L (136-145)
[2020-03-09 07:27] LABS: ALANINE AMINOTRANSFERASE 23 U/L (12-78); ALBUMIN 3.9 G/DL (3.4-5.0); ALBUMIN/GLOBULIN RATIO 1.1 (1.0-2.7); ALKALINE PHOSPHATASE 67 U/L (46-116); ASPARTATE AMINO TRANSFERASE 21 U/L (15-37); BILIRUBIN,TOTAL 0.3 MG/DL (0.2-1.0)
[2020-03-09] MEDS ORDERED: Albuterol 90mcg Inhaler 8gm INH ONE (07:30)
[2020-03-09] MEDS ORDERED: FAMOTIDINE20 MG ORAL (08:09)
[2020-03-09 08:30] VITALS: BP 153/65
--- NOTE | 2020-03-09 08:32 | NUR ---
discharged home with instruction and rx follow up with pmd saline lock dcd
--- NOTE | 2020-03-13 19:35 | Cardiology Report ---
APPROVED REPORT EKG Measurement Heart [id number] <Conclusion> Normal sinus rhythm Minimal voltage criteria for LVH, may be normal variant Borderline ECG
== END 2020-03-09 08:34 | disposition home or self-care (01) ==
LOC: EMR 06:45
DX: R07.89 Other chest pain (principal); S63.602A Unspecified sprain of left thumb, initial encounter; E78.00 Pure hypercholesterolemia, unspecified; X58.XXXA Exposure to other specified factors, initial encounter; Y93.9 Activity, unspecified; Y92.9 Unspecified place or not applicable; Z88.5 Allergy status to narcotic agent; Z88.0 Allergy status to penicillin; Z91.013 Allergy to seafood
CPT/HCPCS: 29125; 36415; 71045; 80053; 84484; 85025; 93005; Z7502; 99284